=== PATIENT | female | born 1975 | race Two or more races ===

== ENCOUNTER 2018-08-20 21:54 | Emergency (ER) | payer SELFPAY ==
[2018-08-20 22:32] VITALS: BP 97/67
[2018-08-20 22:37] LABS: URINE SOURCE CLEAN C
[2018-08-20 22:39] LABS: URINE BILIRUBIN NEGATIVE (NEGATIVE); URINE BLOOD NEGATIVE (NEGATIVE); URINE GLUCOSE (UA) NEGATIVE (NEGATIVE); URINE KETONE TRACE mg/dL (NEGATIVE); URINE LEUKOCYTE ESTERASE TRACE (NEGATIVE); URINE MICROSCOPIC INDICATED? YES; URINE NITRATE NEGATIVE (NEGATIVE); URINE PROTEIN NEGATIVE (NEGATIVE); URINE UROBILINOGEN 0.2 E.U./dL (0.2 - 1.0)
[2018-08-20 22:48] LABS: URINE CLARITY CLEAR (CLEAR); URINE COLOR YELLOW
--- NOTE | 2018-08-20 22:51 | ED Physician Chart ---
ED Chief Complaint/HPI - Patient Information Date Seen:: 08/20/18 Time Seen:: 22:35 Chief Complaint:: dysuria History of Present Illness:: Patient developed dysuria and pruritus earlier today. 2 weeks ago she had her right large toenail removed at [facility] for an ingrown toenail. The doctor there told her that both sides of the nail were ingrown. Patient's has been on Keflex which finished yesterday. Allergies:: Allergies Allergy/AdvReac Type Severity Reaction Status Date / Time No Known Allergies Allergy Verified 08/20/18 22:18 Vitals:: Vital Signs - 8 hr 08/20/18 08/20/18 22:13 22:19 Temp 98.6 F HR 71 RR 19 BP 97/67 97/67 O2 Sat % 98 Historian:: Patient Review:: Nurse's Note Reviewed ED Review of Systems - Review of Systems General/Constitutional: No fever, No chills, No weight loss, No weakness, No diaphoresis, No edema, No loss of appetite Skin: No skin lesions, No rash, No bruising Head: No headache, No light-headedness Eyes: No loss of vision, No pain, No diplopia ENT: No earache, No nasal drainage, No sore throat, No tinnitus Neck: No neck pain, No swelling, No thyromegaly, No stiffness, No mass noted Cardio Vascular: No chest pain, No palpitations, No PND, No orthopnea, No edema Pulmonary: No SOB, No cough, No sputum, No wheezing GI: No nausea, No vomiting, No diarrhea, No pain, No melena, No hematochezia, No constipation, No hematemesis G/U: Dysuria, No frequency, No hematuria Electrical Engineer: Other (pruritus) Musculoskeletal: No bone or joint pain, No back pain, No muscle pain Endocrine: No polyuria, No polydipsia Psychiatric: No prior psych history, No depression, No anxiety, No suicidal ideation Hematopoietic: No bruising, No lymphadenopathy Allergic/Immuno: No urticaria, No angioedema Neurological: No syncope, No focal symptoms, No weakness, No paresthesia, No headache, No seizure, No dizziness, No confusion, No vertigo Family Medical History - Family Member Mother History Unknown: Yes ED Physical Exam - Physical Examination General/Constitutional: Awake, Well-developed, well-nourished, Alert, No distress, GCS 15, Non-toxic appearing, Ambulatory Head: Atraumatic Eyes: Lids, conjuctiva normal, PERRL, EOMI Skin: Nl inspection, No rash, No skin lesions, No ecchymosis, Well hydrated, No lymphadenopathy ENMT: External ears, nose nl, Nasal exam nl, Lips, teeth, gums nl Neck: Nontender, Full ROM w/o pain, No JVD, No nuchal rigidity, No bruit, No mass, No stridor Respiratory: Nl effort/Exclusion, Clear to Auscultation, No Wheeze/Rhonchi/Rales Cardio Vascular: RRR, No murmur, gallop, rubs, NL S1 S2 GI: No tenderness/rebounding/guarding, No organomegaly, No hernia, Normal BS's, Nondistended, No mass/bruits, No McBurney tenderness : No CVA tenderness Extremities: No tenderness or effusion, Full ROM, normal strength in all extremities, No edema, Normal digits & nails Other Extremities comments:: Right large toe: No signs of infection Neuro/Psych: Alert/oriented, DTR's symmetric, Normal sensory exam, Normal motor strength, Judgement/insight normal, Mood normal, Normal gait, No focal deficits Misc: Normal back, No paraspinal tenderness ED Labs/Radiology/EKG Results - Lab Results Results: Laboratory Results Urine Source CLEAN C 08/20/18 22:25 Urine Color YELLOW 08/20/18 22:25 Urine Clarity CLEAR (CLEAR) 08/20/18 22:25 Urine pH 7.0 (4.6 - 8.0) 08/20/18 22:25 Ur Specific [place] 1.025 (1.005-1.030) 08/20/18 22:25 Urine Protein NEGATIVE mg/dL (NEGATIVE) 08/20/18 22:25 Urine Glucose (UA) NEGATIVE mg/dL (NEGATIVE) 08/20/18 22:25 Urine Ketones TRACE mg/dL (NEGATIVE) 08/20/18 22:25 Urine Blood NEGATIVE (NEGATIVE) 08/20/18 22:25 Urine Nitrate NEGATIVE (NEGATIVE) 08/20/18 22:25 Urine Bilirubin NEGATIVE (NEGATIVE) 08/20/18 22:25 Urine Urobilinogen 0.2 E.U./dL (0.2 - 1.0) 08/20/18 22:25 Ur Leukocyte Esterase TRACE (NEGATIVE) H 08/20/18 22:25 Urine RBC 0-2 /hpf (0-5) 08/20/18 22:25 Urine WBC 2-5 /hpf (0-5) 08/20/18 22:25 Ur Epithelial Cells FEW /lpf (FEW) 08/20/18 22:25 Urine Bacteria FEW /hpf (NONE SEEN) 08/20/18 22:25 Urine Test NEGATIVE 08/20/18 22:25 ED Assessment - Assessment General Assessment: Patient does not have a urinary tract infection. Sh.e most likely has vaginal candidiasis from having taken Keflex for 2 weeks. Urged mother to get influenza vaccination every year the end of February or beginning of March ED Septic Shock - . Is Septic Shock (SBP<90, OR Lactate>4 mmol\L) present?: No - <6hrs of presentation: Vital Signs: Vital Signs - 8 hr 08/20/18 08/20/18 22:13 22:19 Temp 98.6 F HR 71 RR 19 BP 97/67 97/67 O2 Sat % 98 ED Reassessment (Disposition) - Reassessment Reassessment Condition:: Unchanged - Diagnosis Diagnosis:: Vaginal candidiasis - Aftercare/Follow up Instructions Aftercare/Follow-Up Instructions:: Refer to Discharge Instructions Medication Prescribed:: Diflucan 150 mg #1 to take as soon as possible. One refill. - Patient Disposition Discharge/Transfer:: Home Condition at Disposition:: Stable, Unchanged
[2018-08-20 22:53] LABS: URINE BACTERIA FEW /hpf (NONE SEEN); URINE EPITHELIAL CELLS FEW /lpf (FEW); URINE RBC 0-2 /hpf (0-5)
[2018-08-20] MEDS ORDERED: Sodium Chloride 0.9% 1,000 ML IV ONE (23:32)
== END 2018-08-20 23:45 | disposition home or self-care (01) ==
LOC: ER 21:54
DX: B37.3 Candidiasis of vulva and vagina (principal)
CPT/HCPCS: 81001-TC; 81025-TC; Z7502